=== PATIENT | male | born 1985 | race Caucasian/White ===

== ENCOUNTER 2017-01-16 21:21 | Emergency (ER) | payer OTHER ==
[~2017-01-16] VITALS: Ht 182.9 cm; Wt 119.5 kg
[~2017-01-16 21:21] MED LIST: DICL75 PO; IBUP800 PO
[2017-01-16 21:39] VITALS: BP 149/89; PULSE 84; RESP 16; TEMP 98.3; O2SAT 99
--- NOTE | 2017-01-16 21:53 | PD ---
HPI Chief Complaint: Injury Time Seen by Provider: 21:53 Travel History International Travel<30 days: No Contact w/Intl Traveler<30days: No Traveled to known affect area: No History of Present Illness HPI 31-year-old male presents to emergency department with injury to the left lateral dorsal hand. This was a workplace injury. Patient states light fixture fell approximate 4 feet and landed directly on the lateral dorsal left hand causing instant pain and a small superficial abrasion. This occurred approximate 4:30 this afternoon. Since that time the patient has had increased pain swelling and decreased range of motion of the lateral hand. He states the pain is now about 7 out of 10. It is worse with Movement. It radiates into the dorsal left wrist. He is up-to-date on his immunizations. He is allergic to penicillin. PFSH Past Medical History Cardiovascular Problems: Yes (HEART MURMURS) Diminished Hearing: No Musculoskeletal: Yes (HERNIATED AND BULGING DISC) Immunizations Current: No Tetanus Vaccination: > 5 Years Influenza Vaccination: No Past Surgical History Oral Surgery: Yes (WISDOM TEETH) Tonsillectomy: Yes (AGE 24) Social History Alcohol Use: Yes (OCC) Tobacco Use: Yes (1 /2 PK WEEK) Substance Use: Yes Allergies-Medications (Allergen,Severity, Reaction): Coded Allergies: Penicillin (Verified Allergy, Intermediate, 01/16/17) MY THROAT SWELLED UP Reported Meds & Prescriptions Reported Meds & Active Scripts Active Ibuprofen 800 Mg Tab 800 Mg PO Q8H PRN Review of Systems Except as stated in HPI: all other systems reviewed are Neg General / Constitutional: No: Fever Eyes: No: Visual changes HENT: No: Headaches Cardiovascular: No: Chest Pain or Discomfort Respiratory: No: Shortness of Breath Gastrointestinal: No: Abdominal Pain Genitourinary: No: Dysuria Musculoskeletal: No: Pain Skin: No Rash Neurologic: No: Weakness Psychiatric: No: Depression Endocrine: No: Polydipsia Hematologic/Lymphatic: No: Easy Bruising Physical Exam Narrative GENERAL: Patient appears no acute distress. SKIN: Warm and dry. Normal color. Normal turgor. Patient is small superficial abrasion to the dorsal left lateral hand, with localized swelling and ecchymosis. It does not seem to involve the fifth digit. HEAD: Atraumatic. Normocephalic. EYES: Pupils equal and round. No scleral icterus. No injection or drainage. ENT: No nasal bleeding or discharge. Mucous membranes pink and moist. Pharynx is clear per NECK: Trachea midline. Supple nontender. CARDIOVASCULAR: Regular rate and rhythm. RESPIRATORY: No accessory muscle use. Clear to auscultation. Breath sounds equal bilaterally. GASTROINTESTINAL: Abdomen soft, non-tender, nondistended. Hepatic and splenic margins not palpable. MUSCULOSKELETAL: Extremities without clubbing, cyanosis, or edema. No obvious deformities. Patient has tenderness and swelling over the dorsal left lateral hand with localized ecchymosis. [employer] strength is limited secondary to pain. Range of motion is intact but limited by pain. NEUROLOGICAL: Awake and alert. No obvious cranial nerve deficits. Motor grossly within normal limits. Five out of 5 muscle strength in the arms and legs. Normal speech. PSYCHIATRIC: Appropriate mood and affect; insight and judgment normal. Data Data Last Documented VS Vital Signs Date Time Temp Pulse Resp B/P Pulse Ox O2 Delivery O2 Flow Rate FiO2 01/16/17 21:51 01/16/17 21:39 98.3 84 16 99 Orders Hand, Complete ([id number]) (01/16/17 21:54) Ice/Cold Pack (01/16/17 21:54) Ibuprofen (Motrin) (01/16/17 22:45) MDM Medical Decision Making Medical Screen Exam Complete: Yes Emergency Medical Condition: Yes Differential Diagnosis Workplace injury. Contusion to left hand. Possible fracture. Abrasions. Narrative Course Patient is medically stable at time of exam. X-ray of the left hand is ordered. X-rays negative for acute process per radiologist. Patient is felt to have a contusion to the dorsal hand which will be treated with an Álvaro bandage and ibuprofen 800 mg 3 times daily with food. Patient will need to clear with his Worker's Comp. provider for full resolution. Patient is put on limited use of left hand until cleared. Worker's Comp. paperwork is completed and copy given to the patient. Diagnosis Primary Impression: Contusion of left hand, initial encounter Patient Instructions: General Instructions Additional Instructions: X-rays negative for acute process per radiologist. Patient is felt to have a contusion to the dorsal hand which will be treated with an Álvaro bandage and ibuprofen 800 mg 3 times daily with food. Patient will need to clear with his Worker's Comp. provider for full resolution. Patient is put on limited use of left hand until cleared. Worker's Comp. paperwork is completed and copy given to the patient. Med/Other Pt SpecificInfo: Prescription(s) given Scripts Ibuprofen 800 Mg [id number] Mg PO Q8H PRN (Pain/Inflammation) #30 TAB Prov:Manuel Chou MD 01/16/17 Disposition: 01 DISCHARGE HOME Condition: Stable Brock Tiwari January 16, 2017 21:53
--- NOTE | 2017-01-16 22:41 | RADHPO ---
EXAM DATE/TIME: 01/16/2017 22:10 [facility] COMPARISON: No previous studies available for comparison. INDICATIONS : Left hand, fourth and fifth metacarpal pain. MEDICAL HISTORY : None. SURGICAL HISTORY : None. ENCOUNTER: Initial ACUITY: 1 day PAIN SCORE: 7/10 LOCATION: Left upper extremity FINDINGS: Three view examination of the left hand demonstrates no soft tissue swelling, dislocation, or fractur e. The carpal bones appear intact. The interphalangeal and metacarpophalangeal joints are intact. Bony mineralization is normal. CONCLUSION: No acute fracture or subluxation of the left hand. Dale Reed MD on January 16, 2017 at 22:39 Board Certified Radiologist. This report was verified electronically.
[2017-01-16] MEDS ORDERED: IBUP800T23 PO (22:42)
[2017-01-16] MEDS ORDERED: IBUPROFEN 800 MG TAB PO ONE (22:45)
== END 2017-01-16 23:00 | disposition home or self-care (01) ==
LOC: PHEFT 21:21
DX: S60.222A Contusion of left hand, initial encounter (principal); Z72.0 Tobacco use; Z86.79 Personal history of other diseases of the circulatory system; Z87.39 Personal history of other diseases of the musculoskeletal system and connective tissue; W20.8XXA Other cause of strike by thrown, projected or falling object, initial encounter; Y99.0 Civilian activity done for income or pay
CPT/HCPCS: 73130; 99283